=== PATIENT | male | born 1990 | race African-American/Black ===

== ENCOUNTER 2018-03-21 17:07 | Emergency (ER) | payer SELFPAY ==
[2018-03-21] MEDS ORDERED: PROVENTIL INHALER 6.7 G (200 INHALATIONS) INH SCH (18:00)
== END 2018-03-21 18:29 | disposition home or self-care (01) ==
LOC: ERS 17:07
DX: J45.901 Unspecified asthma with (acute) exacerbation (principal); F32.9 Major depressive disorder, single episode, unspecified; Z87.891 Personal history of nicotine dependence; Z79.899 Other long term (current) drug therapy
CPT/HCPCS: 99284

== ENCOUNTER 2018-04-14 16:46 | Emergency (ER) | payer SELFPAY ==
[2018-04-14] MEDS ORDERED: Magnesium Sulfate 2 GM/100 ML BAG ONE (17:12)
[2018-04-14] MEDS ORDERED: Albuterol Sulfate 2.5 mg/0.5 ml Neb ONE ×2 (17:24→17:25)
[2018-04-14] MEDS ORDERED: Albuterol Sulfate 2.5 mg/3 ml Neb ONE (17:34)
--- NOTE | 2018-04-14 18:28 | RAD ---
CHEST TWO VIEWS: 04/14/18 HISTORY: Dyspnea. COMPARISON: 08/02/15. FINDINGS: Normal cardiac silhouette. Lungs and pleural spaces are clear. No pneumothorax or osseous abnormaliti es. IMPRESSION: No acute cardiopulmonary process. POS: [facility]
== END 2018-04-14 19:07 | disposition home or self-care (01) ==
LOC: ERS 16:46
DX: J45.901 Unspecified asthma with (acute) exacerbation (principal); Z71.6 Tobacco abuse counseling; F32.9 Major depressive disorder, single episode, unspecified; Z87.891 Personal history of nicotine dependence; Z79.899 Other long term (current) drug therapy
CPT/HCPCS: 71046; 94644; 96365; 99406; J3475; J7611

== ENCOUNTER 2018-04-29 01:36 | Emergency (ER) | payer SELFPAY ==
[2018-04-29] MEDS ORDERED: Magnesium Sulfate 2 GM/100 ML BAG ONE (01:49)
== END 2018-04-29 03:00 | disposition home or self-care (01) ==
LOC: ERS 01:36
DX: J45.901 Unspecified asthma with (acute) exacerbation (principal); F32.9 Major depressive disorder, single episode, unspecified; Z87.891 Personal history of nicotine dependence; Z79.51 Long term (current) use of inhaled steroids; Z79.899 Other long term (current) drug therapy
CPT/HCPCS: 94760; 96365; J3475

== ENCOUNTER 2018-05-04 06:33 | Emergency (ER) | payer SELFPAY | END 2018-05-04 07:30 | disposition home or self-care (01) | LOC: ERS 06:33 | DX: J45.901 Unspecified asthma with (acute) exacerbation (principal); F32.9 Major depressive disorder, single episode, unspecified; Z87.891 Personal history of nicotine dependence | CPT/HCPCS: 99285 ==

== ENCOUNTER 2018-05-06 11:53 | Emergency (ER) | payer SELFPAY | END 2018-05-06 12:38 | disposition home or self-care (01) | LOC: ERS 11:53 | DX: J45.901 Unspecified asthma with (acute) exacerbation (principal); F32.9 Major depressive disorder, single episode, unspecified; Z87.891 Personal history of nicotine dependence; Z79.899 Other long term (current) drug therapy | CPT/HCPCS: 99285 ==

== ENCOUNTER 2018-05-21 09:03 | Emergency (ER) | payer SELFPAY | END 2018-05-21 10:55 | disposition home or self-care (01) | LOC: ERS 09:03 | DX: J45.901 Unspecified asthma with (acute) exacerbation (principal); F32.9 Major depressive disorder, single episode, unspecified; Z87.891 Personal history of nicotine dependence; Z79.51 Long term (current) use of inhaled steroids | CPT/HCPCS: 99285 ==

== ENCOUNTER 2019-01-27 23:14 | Emergency (ER) | payer SELFPAY | END 2019-01-27 23:44 | disposition home or self-care (01) | LOC: ERS 23:14 | DX: J45.901 Unspecified asthma with (acute) exacerbation (principal); F32.9 Major depressive disorder, single episode, unspecified; Z87.891 Personal history of nicotine dependence; Z79.51 Long term (current) use of inhaled steroids | CPT/HCPCS: 99285 ==

== ENCOUNTER 2019-03-05 02:44 | Inpatient (IN) | payer SELFPAY ==
[2019-03-05] MEDS ORDERED: Albuterol Sulfate 2.5 mg/0.5 ml Neb ONE ×2 (02:49→03:27)
[2019-03-05] MEDS ORDERED: Albuterol Sulfate 2.5 mg/3 ml Neb ONE ×3 (02:49→12:35)
[2019-03-05 03:23] LABS: #Basophils 0.2 thou/uL (0.0-0.2); #Eosinphils 0.5 thou/uL (0.0-0.7); #Lymphocytes 3.6 thou/uL (1.20-3.40); #Monocytes 0.9 thou/uL (0.11-0.59); #Neutrophils 4.2 thou/uL (1.40-6.50); %Basophils 1.8 % (0.0-1.0); %Eosinophils 5.5 % (0.0-10.0); %Lymphocytes 38.3 % (21.0-51.0); %Monocytes 9.2 % (0.0-10.0); %Neutrophils 45.2 % (42.0-75.0); Hemoglobin 14.7 g/dL (14.0-18.0); Mean Corpuscular Volume 96.6 fL (78.0-98.0); Mean Platelet Volume 7.3 fL (7.4-10.4); Platelet Count 202 thou/uL (130-400); RBC Distribution Width 11.5 % (11.5-14.5); Red Blood Cell (RBC) Count 4.75 mill/uL (4.70-6.10); White Blood Cell (WBC) Count 9.3 thou/uL (4.8-10.8)
[2019-03-05 03:39] LABS: Analyzer IN Cardio ER; Base Excess (BEa) -3.4 mEq/L (-2.0 to +3.0); CO2 Tension 46.3 mmHg (35.0-45.0); Calcium, Ionized 1.21 mmol/L (1.12-1.30); Carboxyhemoglobin (COHb) 0.2 gm% (0.0-3.0); Hemoglobin (Hb) 15.5 g/dL (14.0-18.0); O2 Tension (PaO2) 218.4 mmHg (80.0-100.0); Potassium - ABG Lab 3.34 mmol/L (3.70-5.30); pH, Arterial 7.31 (7.35-7.45)
[2019-03-05 03:42] LABS: ALV-art Gradient -62.375 (0-20); Puncture Site LRA
[2019-03-05 04:17] LABS: ALT (SGPT) 18 U/L (8-55); AST (SGOT) 20 U/L (5-34); Albumin 3.7 g/dL (3.5-5.0); Alkaline Phosphatase 56 U/L (40-150); Anion Gap 13 mmol/L (10-20); BUN (Urea Nitrogen) 15 mg/dL (8.9-20.6); Bilirubin, Total 0.5 mg/dL (0.2-1.2); Calc. Creatinine Clearance 0 mL/min (70-130); Carbon Dioxide 23 mmol/L (22-29); Chloride 109 mmol/L (98-107); Estimated GFR-MDRD Greater than 90; Globulin 2.4 g/dL (2.4-3.5); Glucose 135 mg/dL (70-105); Potassium 3.5 mmol/L (3.5-5.1); Protein, Total 6.1 g/dL (6.0-8.3); Sodium 141 mmol/L (136-145)
[2019-03-05] MEDS ORDERED: Albuterol Sulfate 1.25 MG/3 ML NEB NEB PRN (05:15)
[2019-03-05] MEDS ORDERED: Ondansetron PF 4 MG/2 ML Vial IVP PRN (05:17)
[2019-03-05] MEDS ORDERED: Ondansetron ODT 4 MG TAB PO PRN (05:17)
[2019-03-05] MEDS ORDERED: Acetaminophen 325 MG TAB PO PRN (05:17)
[2019-03-05] MEDS ORDERED: methylPREDNISolone Sod Succ 40 MG VIAL ONE ×2 (05:45→12:29)
[2019-03-05] MEDS: methylPREDNISolone Sod Succ 40 MG VIAL IVP SCH ×4 (06:01→23:50)
[2019-03-05] MEDS: Sodium Chloride 0.9% 1,000 ML IV SCH ×3 (06:01→22:18)
[2019-03-05 06:05] VITALS: BMI 17.6
--- NOTE | 2019-03-05 07:34 | HP ---
PRIMARY CARE DOCTOR: Josiah Noriega MD CODE STATUS: Full code. TIME OF EVALUATION: 4 a.m. CHIEF COMPLAINT: Severe shortness of breath. HISTORY OF PRESENT ILLNESS: This is a 28-year-old male patient, known to the hospital due to recurrent severe asthma attacks, recently discharged from our service after intubation in the ICU for the same problem, came to the hospital after having severe sudden onset shortness of breath with no clear triggers. No alleviating factors. The patient received multiple treatment with bronchodilators and steroids. Magnesium has had some improvement, still needing BiPAP. The patient is in respiratory acidosis. This is acute. We will continue BiPAP. He is improving. Monitor closely in IMCU. REVIEW OF SYSTEMS: CONSTITUTIONAL: No fever, chills, or generalized weakness. RESPIRATORY: The patient has cough with scant sputum production and shortness of breath. CARDIOVASCULAR: No chest pain or palpitation. GASTROINTESTINAL: No nausea. No vomiting, diarrhea, or abdominal pain. IMPORT/EXPORT CLERK: No dizziness, headache, or feeling lightheaded. GENITOURINARY: No burning on urination. EXTREMITIES: No leg swelling. All other systems were reviewed and negative except for the findings mentioned above. PAST MEDICAL HISTORY: Positive for asthma. PAST SURGICAL HISTORY: No surgical history. PSYCHIATRIC HISTORY: Depression and history of suicidal ideation. SOCIAL HISTORY: No alcohol. Former drug user. Abuse methamphetamines. Quit smoking in past year. FAMILY HISTORY: Noncontributory to this case. KNOWN ALLERGIES: No known drug allergies. REPORTED MEDICATIONS: Albuterol. PHYSICAL EXAMINATION: VITAL SIGNS: On presentation; blood pressure 136/81, heart rate 122, respiratory rate was 16, temperature 97.6, pain was 2, oxygen saturation was 100 on BiPAP. GENERAL APPEARANCE: The patient is alert, oriented, not in acute distress. HEENT: Eyes, normal conjunctivae. Moist oral mucosa. Anicteric. No JVD. RESPIRATORY: Bilateral air entry is decreased with decreased air movement. No rales. Bilateral wheezing, symmetric expansion. CARDIOVASCULAR: The patient is tachycardic. Regular rhythm. No murmurs. No gallops. No edema. ABDOMEN: Soft. Normal bowel sounds. MUSCULOSKELETAL: Baseline range of motion and strength. No tenderness. SKIN: Warm and intact. No pallor. No rash. No redness. Peripheral pulses are present. Capillary refill seems to be intact. NEUROLOGIC: No evidence of any new focal weakness. Baseline speech. Cranial nerves seems to be intact. PSYCH: The patient is in good mood. No anxiety. Optimal judgment. DIAGNOSTIC STUDIES: EKG was reviewed, the patient has sinus tachycardia, heart rate 119, CA 114, QRS 80, QT corrected 175. Chest x-ray showed air trapping pattern with cardiac silhouette horizontal ribs. No evidence of any pneumonia. LABORATORY DATA: Labs are reviewed. The patient has white count 9.3, hemoglobin 14.7, MCV 96.6, platelet count 202. Blood gas, pH 7.31 with pCO2 of 46.3, pO2 218. Chemistry; sodium 141, potassium 3.5, chloride 109, carbon dioxide 23, anion gap 13, BUN 15, creatinine 1.04, GFR greater than 90, glucose 135, calcium 9, total bilirubin 0.5. LFTs were negative. ASSESSMENT AND PLAN: The patient will be placed in the hospital with following medical problems: 1. Acute severe status asthmaticus, not resolving with initial treatment. The patient presented with acute hypoxic respiratory failure, hypercarbic respiratory failure with respiratory acidosis, improved on BiPAP. We will monitor closely in IMCU. The patient may need intubation if continue to deteriorate. Continue nebs and steroids. Consult Pulmonary. We will follow recommendations. 2. Deep venous thrombosis prophylaxis. 3. Hyperglycemia. Glucose 135, this is likely due to acute distress. No history of diabetes. No need for any acute intervention at this point, this is mild, we will monitor. We will treat accordingly. Job ID: [id number]
--- NOTE | 2019-03-05 08:29 | RAD ---
CHEST 1 VIEW: INDICATION: Asthma exacerbation. COMPARISON: Prior study dated 02/22/2019. FINDINGS: Lungs are hyperinflated but clear. No definite pneumothorax is evident. No acute osseous abnormalit y is noted. IMPRESSION: No acute cardiopulmonary abnormality. POS: [facility]
[2019-03-05] MEDS ORDERED: Enoxaparin Sodium 40 MG/0.4 ML SYRINGE ONE (09:09)
[2019-03-05] MEDS: Enoxaparin Sodium 40 MG/0.4 ML SYRINGE SC SCH (09:14)
[2019-03-05] MEDS: Albuterol Sulfate 1.25 MG/3 ML NEB NEB SCH ×4 (09:42→22:11)
[2019-03-06] MEDS: Albuterol Sulfate 1.25 MG/3 ML NEB NEB SCH ×7 (02:30→22:12)
[2019-03-06 05:45] LABS: #Lymphocytes 0.9 thou/uL (1.20-3.40); #Monocytes 0.7 thou/uL (0.11-0.59); #Neutrophils 16.7 thou/uL (1.40-6.50); %Basophils 0.1 % (0.0-1.0); %Eosinophils 0.1 % (0.0-10.0); %Monocytes 3.7 % (0.0-10.0); %Neutrophils 91.1 % (42.0-75.0); Hemoglobin 14.3 g/dL (14.0-18.0); Mean Corpuscular HGB CONC 32.7 g/dL (32.0-36.0); Mean Corpuscular Hemoglobin 31.6 pg (27.0-31.0); Mean Corpuscular Volume 96.4 fL (78.0-98.0); Mean Platelet Volume 7.4 fL (7.4-10.4); Platelet Count 201 thou/uL (130-400); RBC Distribution Width 11.6 % (11.5-14.5); Red Blood Cell (RBC) Count 4.53 mill/uL (4.70-6.10); White Blood Cell (WBC) Count 18.3 thou/uL (4.8-10.8)
[2019-03-06 06:08] LABS: Anion Gap 9 mmol/L (10-20); BUN (Urea Nitrogen) 7 mg/dL (8.9-20.6); Calc. Creatinine Clearance 98 mL/min (70-130); Calcium 9.2 mg/dL (7.8-10.44); Carbon Dioxide 25 mmol/L (22-29); Chloride 108 mmol/L (98-107); Estimated GFR-MDRD Greater than 90; Glucose 127 mg/dL (70-105); Potassium 4.1 mmol/L (3.5-5.1); Sodium 138 mmol/L (136-145)
[2019-03-06] MEDS: methylPREDNISolone Sod Succ 40 MG VIAL IVP SCH ×2 (06:23→12:32)
[2019-03-06] MEDS: Sodium Chloride 0.9% 1,000 ML IV SCH (06:23)
[2019-03-06] MEDS: Enoxaparin Sodium 40 MG/0.4 ML SYRINGE SC SCH (09:52)
[2019-03-06] MEDS ORDERED: predniSONE 20 MG TAB PO SCH (13:00)
--- NOTE | 2019-03-06 18:15 | PDOC.PN ---
- Subjective Encounter Start Date: 03/06/19 Encounter Start Time: 10:20 Pt seen for followup re: asthma exacerbation. Says he feels better. - Objective Resuscitation Status - Order Detail: 03/05/19 05:17 Resuscitation Status Routine Resuscitation Status: FULL: Full Resuscitation Resuscitation Status Routine Resuscitation Status: FULL: Full Resuscitation Additional comments: CALLED DR. GERMAN OFFICE @ [id number] [facility] Reviewed: Yes Vital Signs & Weight: Vital Signs (12 hours) Temp Pulse Resp BP Pulse Ox 03/06/19 17:42 99 03/06/19 17:41 98.3 F 86 18 110/70 99 03/06/19 15:17 106 H 12 95 03/06/19 14:45 99.6 F 03/06/19 10:48 109 H 15 96 03/06/19 10:33 99.3 F 03/06/19 08:00 100 03/06/19 07:13 82 19 97 03/06/19 07:11 98.4 F Weight Admit Weight 109 lb 9.116 oz Weight 109 lb 9.116 oz Most Recent Monitor Data Heart Rate from ECG 91 NIBP 123/57 NIBP BP-Mean 79 Respiration from ECG 16 SpO2 98 I&O: 03/05/19 03/06/19 03/07/19 06:59 06:59 06:59 Intake Total 2115 900 Output Total 1800 1850 Balance 315 -950 Result Diagrams: 03/06/19 05:25 03/06/19 05:25 Additional Labs: Tele: sinus tachycardia Phys Exam - Physical Examination Constitutional: NAD HEENT: moist MMs Neck: supple Diminished air entry maikel bases S1, S2, tachy, reg Gastrointestinal: positive bowel sounds Neurological: moves all 4 limbs Psychiatric: normal affect Dx/Plan (1) Asthma exacerbation Code(s): J45.901 - UNSPECIFIED ASTHMA WITH (ACUTE) EXACERBATION Status: Acute Comment: Improving, continue oxygen, steroids, bronchodilators (2) Leucocytosis Code(s): D72.829 - ELEVATED WHITE BLOOD CELL COUNT, UNSPECIFIED Status: Acute Comment: secondary to steroids - Plan respiratory therapy, out of bed/ambulate * . Consult case management for medication assistance Review of Systems - Review of Systems Respiratory: Cough, Dry, SOB with Excertion. negative: Shortness of Breath, Hemoptysis, Pleuritic Pain, Sputum, Wheezing Cardiovascular: negative: chest pain, palpitations, orthopnea, paroxysmal nocturnal dyspnea, edema, light headedness - Medications/Allergies Allergies/Adverse Reactions: Allergies Allergy/AdvReac Type Severity Reaction Status Date / Time No Known Allergies Allergy Verified 03/05/19 16:27 Medications: Current Medications Acetaminophen (Tylenol) 650 mg PO Q4H PRN PRN Reason: Headache/Fever/Mild Pain (1-3) Albuterol Sulfate (Albuterol Sulfate) 2.5 mg NEB Q2H PRN PRN Reason: Wheezing Albuterol Sulfate (Albuterol Sulfate) 2.5 mg NEB [id number] [facility] Enoxaparin Sodium (Lovenox) 40 mg SC 0900 [facility] Last Admin: 03/06/19 09:52 Dose: 40 mg Montelukast Sodium (Singulair) 10 mg PO QPM [facility] Ondansetron HCl (Zofran Odt) 4 mg PO Q6H PRN PRN Reason: Nausea/Vomiting Ondansetron HCl (Zofran) 4 mg IVP Q6H PRN PRN Reason: Nausea/Vomiting Prednisone (Prednisone) 40 mg PO QAM-[facility] Stop: 03/19/19 08:01
--- NOTE | 2019-03-06 20:36 | CON ---
DATE OF CONSULTATION: 03/06/2019 SERVICE: Pulmonary Medicine. REASON FOR CONSULT: Status asthmaticus. HISTORY OF PRESENT ILLNESS: The patient is a 28-year-old male with past medical history significant for asthma. He was in his usual state of health when he woke up at 2 o'clock in the morning abruptly short of breath. He could not catch his air and presented to the emergency department where he was discovered to be suffering from a severe asthma attack. He denies any current fevers, chills, nausea, vomiting, or diarrhea. He did not have any cough or sputum production. He is not having any diarrhea. Otherwise, he went to bed in his usual state of health. PAST MEDICAL HISTORY: 1. Asthma. 2. Acid reflux disease. PAST SURGICAL HISTORY: None. SOCIAL HISTORY: He is a former abuser of methamphetamine. He quit smoking within the last year. He denies any alcohol or current street drugs. He has no exposure to chemicals, dust, asbestos, or tuberculosis. FAMILY HISTORY: Noncontributory. ALLERGIES: NO KNOWN DRUG ALLERGIES. MEDICATIONS: List of his inpatient medications was reviewed. Multiple updates were made at this time. REVIEW OF SYSTEMS: General, head, ears, eyes, nose, throat, cardiovascular, respiratory, GI, , musculoskeletal, neurologic, and skin is negative except as mentioned in the HPI. PHYSICAL EXAMINATION: VITAL SIGNS: Afebrile, pulse 82, blood pressure 97/48, respirations 19, saturation 97% on room air. GENERAL: The patient is awake and alert, in no apparent distress. LUNGS: Very reduced air entry. There is a prolonged expiratory phase with minimal wheezing present. He is really not moving enough air to appreciate clear adventitious sounds. No crackles or rhonchi appreciated. HEART: Normal rate and regular. ABDOMEN: Soft, nontender, and nondistended. Bowel sounds are positive. MUSCULOSKELETAL: No cyanosis or clubbing. No pitting in the bilateral lower extremities. NEUROLOGIC: Grossly nonfocal. LABORATORY DATA: Eosinophil count is 5.5%, corresponding to 500. CBC is otherwise unremarkable on presentation. The white blood cell count went up, likely owing to steroids. PH 7.31, pCO2 of 46, PO2 of 218. Basic metabolic profile and liver function studies are otherwise unremarkable. Blood cultures x2 are negative. IMAGING DATA: Chest x-ray demonstrates no acute cardiopulmonary abnormality. Hyperexpanded lung morales are identified. ASSESSMENT: 1. Status asthmaticus, improving. 2. Acute hypoxic and hypercapnic respiratory failure, improving. 3. Acid reflux disease. DISCUSSION AND PLAN: With the patient's descriptions of nocturnal symptoms 3 or 4 times a week and severe reflux changes, my suspicion is that he is having true asthma attacks, but they may be related to extrinsic disease. Additionally, he needs to be on controlling asthma medications in the outpatient setting. He identifies cost as an issue there. That being said, he admits that he has never done the legwork to see whether or not he would qualify for free drug through one of the drug companies. He will need to touch base with his primary care physician to facilitate this in the outpatient setting if possible. We will deescalate his steroids over to p.o., I will interrupt his IV fluids. We can transition him upstairs. I have cautioned him to avoid p.o. within 2 hours of being supine and to keep his head of bed elevated while sleeping in order to prevent reflux related asthma attacks. I will continue to follow while he remains in-house, but from my perspective, if he continues to improve, he will be stable for transition out of the hospital on a 14-day course of steroids. Once again, on discharge, the patient would benefit from long-acting therapy like Dulera or Symbicort or Breo or nebulized budesonide in the outpatient setting. 70 minutes have been devoted to this patient in various activities. I personally reviewed all imaging studies and laboratory data noted within this document. For fifty percent of this time, I was interacting with the patient at the bedside or coordinating care with the care team. For the remainder of the time I was immediately available to the patient in the hospital unit. Job ID: [id number] MTDD
[2019-03-06] MEDS ORDERED: Montelukast Sodium 10 mg Tablet PO SCH (21:00)
[2019-03-07] MEDS: Albuterol Sulfate 1.25 MG/3 ML NEB NEB SCH ×4 (02:42→14:05)
[2019-03-07 06:26] LABS: #Lymphocytes 3.9 thou/uL (1.20-3.40); #Neutrophils 11.2 thou/uL (1.40-6.50); %Basophils 0.3 % (0.0-1.0); %Eosinophils 0.1 % (0.0-10.0); %Monocytes 6.2 % (0.0-10.0); %Neutrophils 69.5 % (42.0-75.0); Mean Corpuscular HGB CONC 31.5 g/dL (32.0-36.0); Mean Corpuscular Hemoglobin 30.5 pg (27.0-31.0); Mean Platelet Volume 7.8 fL (7.4-10.4); Platelet Count 211 thou/uL (130-400); RBC Distribution Width 11.7 % (11.5-14.5); White Blood Cell (WBC) Count 16.1 thou/uL (4.8-10.8)
[2019-03-07 06:55] LABS: Anion Gap 12 mmol/L (10-20); BUN (Urea Nitrogen) 9 mg/dL (8.9-20.6); Calc. Creatinine Clearance 99 mL/min (70-130); Calcium 9.1 mg/dL (7.8-10.44); Carbon Dioxide 25 mmol/L (22-29); Chloride 105 mmol/L (98-107); Estimated GFR-MDRD Greater than 90; Glucose 81 mg/dL (70-105); Potassium 3.5 mmol/L (3.5-5.1); Sodium 138 mmol/L (136-145)
[2019-03-07] MEDS: Enoxaparin Sodium 40 MG/0.4 ML SYRINGE SC SCH (07:55)
[2019-03-07] MEDS ORDERED: predniSONE 20 MG TAB PO SCH (08:00)
--- NOTE | 2019-03-07 14:06 | PDOC.PN ---
- Subjective Encounter Start Date: 03/07/19 Encounter Start Time: 08:40 Pt seen for followup re: asthma exacerbation. Denies fevers or chills. Feels better. - Objective Resuscitation Status - Order Detail: 03/05/19 05:17 Resuscitation Status Routine Resuscitation Status: FULL: Full Resuscitation Resuscitation Status Routine Resuscitation Status: FULL: Full Resuscitation Additional comments: CALLED DR. GERMAN OFFICE @ [id number] Vital Signs & Weight: Vital Signs (12 hours) Temp Pulse Resp BP BP Pulse Ox 03/07/19 11:20 98.5 F 88 18 106/68 98 03/07/19 10:32 102 H 19 03/07/19 08:00 97 03/07/19 07:44 97.8 F 100 20 94/54 L 97 03/07/19 06:52 82 16 03/07/19 05:10 98.6 F 82 16 106/63 96 03/07/19 02:42 91 14 97 Weight Admit Weight 109 lb 9.116 oz Weight 109 lb 9.116 oz Most Recent Monitor Data Heart Rate from ECG 91 NIBP 123/57 NIBP BP-Mean 79 Respiration from ECG 16 SpO2 98 I&O: 03/06/19 03/07/19 03/08/19 06:59 06:59 06:59 Intake Total 2115 1877 Output Total 1800 1850 Balance 315 27 Result Diagrams: 03/07/19 05:40 03/07/19 05:40 Phys Exam - Physical Examination Constitutional: NAD HEENT: moist MMs Neck: supple Respiratory: clear to auscultation bilateral Cardiovascular: RRR Gastrointestinal: soft Neurological: moves all 4 limbs Psychiatric: normal affect Dx/Plan (1) Asthma exacerbation Code(s): J45.901 - UNSPECIFIED ASTHMA WITH (ACUTE) EXACERBATION Status: Acute Comment: significantly improved. Continue steroids and bronchodilators. (2) Leucocytosis Code(s): D72.829 - ELEVATED WHITE BLOOD CELL COUNT, UNSPECIFIED Status: Acute Comment: secondary to steroid use - Plan * . Review of Systems - Review of Systems Respiratory: SOB with Excertion. negative: Cough, Dry, Shortness of Breath, Hemoptysis, Pleuritic Pain, Sputum, Wheezing Cardiovascular: negative: chest pain, palpitations, orthopnea, paroxysmal nocturnal dyspnea, edema, light headedness - Medications/Allergies Allergies/Adverse Reactions: Allergies Allergy/AdvReac Type Severity Reaction Status Date / Time No Known Allergies Allergy Verified 03/05/19 16:27 Medications: Current Medications Acetaminophen (Tylenol) 650 mg PO Q4H PRN PRN Reason: Headache/Fever/Mild Pain (1-3) Albuterol Sulfate (Albuterol Sulfate) 2.5 mg NEB Q2H PRN PRN Reason: Wheezing Albuterol Sulfate (Albuterol Sulfate) 2.5 mg NEB [id number] [facility] Last Admin: 03/07/19 10:32 Dose: 2.5 mg Enoxaparin Sodium (Lovenox) 40 mg SC 0900 [facility] Last Admin: 03/07/19 07:55 Dose: 40 mg Montelukast Sodium (Singulair) 10 mg PO QPM [facility] Last Admin: 03/06/19 20:06 Dose: 10 mg Ondansetron HCl (Zofran Odt) 4 mg PO Q6H PRN PRN Reason: Nausea/Vomiting Ondansetron HCl (Zofran) 4 mg IVP Q6H PRN PRN Reason: Nausea/Vomiting Prednisone (Prednisone) 40 mg PO QA-[facility] Stop: 03/19/19 08:01 Last Admin: 03/07/19 07:55 Dose: 40 mg
--- NOTE | 2019-03-07 14:40 | PRG ---
DATE OF SERVICE: 03/07/2019 SERVICE: Pulmonary Medicine. INTERVAL HISTORY: The patient is doing outstanding from respiratory standpoint. He indicates his breathing is basically back to baseline. He denies any current chest pain, fevers, chills, nausea, vomiting, or shortness of breath. Otherwise, he has no specific complaints. PHYSICAL EXAMINATION: VITAL SIGNS: Afebrile, pulse 88, blood pressure 106/68, respirations 18, and saturation 98% on room air. GENERAL: The patient is awake and alert, in no apparent distress. LUNGS: Much improved air entry. There is a prolonged expiratory phase. I do not hear any polyphonic wheezing, crackles, or rhonchi. HEART: Normal rate and regular. ABDOMEN: Soft, nontender, and nondistended. Bowel sounds are positive. MUSCULOSKELETAL: No cyanosis or clubbing. No pitting in the bilateral lower extremities. NEUROLOGIC: Grossly nonfocal. LABORATORY DATA: WBC 16.1 and downtrending, hemoglobin 14, platelets 211,000. Basic metabolic profile is essentially unremarkable. Blood cultures x2 are unremarkable. ASSESSMENT: 1. Status asthmaticus, resolved. 2. Acute hypoxic and hypercapnic respiratory failure, resolved. 3. Acid reflux disease. DISCUSSION AND PLAN: The patient is stable for transition out of the hospital. He will need 14 days of steroids. The white blood cell count is likely a steroid effect. The differential has returned to the normal limits, and lymphocyte count has rebounded. He will need to initiate a long-acting inhaled corticosteroid in the outpatient setting. This can come in the form of budesonide, Symbicort, Breo, or Dulera. We can continue Singulair in the outpatient setting as well. In addition to this, he will need to continue short-acting beta agonist if needed. If he remains in-house, I will continue to follow but from my perspective, he is stable for discharge home with his prednisone taper. Job ID: [id number]
[2019-03-07 16:18] VITALS: BP 126/76; TEMP 98.2
--- NOTE | 2019-03-07 20:44 | DIS ---
DATE OF ADMISSION: 03/05/2019 DATE OF DISCHARGE: 03/07/2019 PRIMARY CARE PROVIDER: Dr. Josiah Noriega. DISCHARGE DIAGNOSES: 1. Status asthmaticus. 2. Acute hypoxic and hypercapnic respiratory failure. CONDITION OF PATIENT ON THE DAY OF DISCHARGE: Stable. I assessed Mr. Bermeo on the day of discharge. Please refer to my daily progress note for further details regarding this [id number] encounter. DISCHARGE MEDICATIONS: 1. ProAir HFA 2 puffs every 6 hours as needed. 2. Dulera 100/5 mcg inhaler 2 puffs two times a day. 3. Singulair 10 mg daily. 4. Prednisone 40 mg daily for 13 more days. CONSULTATIONS DURING THIS HOSPITALIZATION: Pulmonary and Critical Care Medicine, Dr. Castro. HOSPITAL COURSE: Mr. Bermeo is a pleasant 28-year-old gentleman who was admitted to [facility] on 03/05/2019, for status asthmaticus. He improved with oxygen, steroids, and bronchodilators. He was also briefly treated with BiPAP. He was initially treated in IMCU and subsequently transferred to the medical floor. He continued to improve and is being discharged home in a stable condition. On the day of discharge, he has white count 16,100, hemoglobin 14, platelet count 211,000, normal electrolytes and normal creatinine. Many thanks for allowing me to participate in your patient's care. Please feel free to contact me with any questions or concerns. DISCHARGE DESTINATION: Home. TOTAL AMOUNT OF TIME SPENT COORDINATING THIS DISCHARGE: 31 minutes. Job ID: [id number]
== END 2019-03-07 16:54 | disposition home or self-care (01) | DRG 189 ==
LOC: ERS 02:44 → ERHOLD 03:30 → IMCU/EMU 16:08 → T4-B 03-06 17:27
PROVIDERS: ADMIT Hospitalist; ATTEND Hospitalist
PROC: 5A09457 Assistance with Respiratory Ventilation, 24-96 Consecutive Hours, Continuous Positive Airway Pressure (ICD-10-PCS; principal; 2019-03-05)
DX: J96.01 Acute respiratory failure with hypoxia (principal); J45.902 Unspecified asthma with status asthmaticus; J96.02 Acute respiratory failure with hypercapnia; F32.9 Major depressive disorder, single episode, unspecified; F15.11 Other stimulant abuse, in remission; K21.9 Gastro-esophageal reflux disease without esophagitis; D72.829 Elevated white blood cell count, unspecified; R73.9 Hyperglycemia, unspecified; Z79.51 Long term (current) use of inhaled steroids; Z87.891 Personal history of nicotine dependence
CPT/HCPCS: 36415; 71045; 80048; 80053; 82805; 85025; 87040; 93005; 94640; 94644; 94660; J1650; J2920; J7512; J7611; J7620

== ENCOUNTER 2019-03-22 12:49 | Emergency (ER) | payer SELFPAY ==
[2019-03-22] MEDS ORDERED: Albuterol Sulfate 2.5 mg/0.5 ml Neb ONE ×2 (13:16)
--- NOTE | 2019-03-22 13:35 | RAD ---
XR Chest 1 View Portable History: [Dyspnea] Comparison: Radiograph February 27 6018 Findings: Lungs are clear. No pneumothorax or effusion. Cardiac silhouette and mediastinal contours a re within normal limits. Impression: No acute intrathoracic abnormality.
== END 2019-03-22 15:10 | disposition home or self-care (01) ==
LOC: ERS 12:49
DX: J45.901 Unspecified asthma with (acute) exacerbation (principal); F32.9 Major depressive disorder, single episode, unspecified; Z87.891 Personal history of nicotine dependence; Z79.51 Long term (current) use of inhaled steroids
CPT/HCPCS: 71045; 94640; 96360; 96361; J7611; J7620

== ENCOUNTER 2019-04-05 22:59 | Emergency (ER) | payer OTHER, SELFPAY ==
--- NOTE | 2019-04-05 23:46 | RAD ---
AP view chest. HISTORY: Asthma. AP view chest obtained. The lungs are well aerated. No evidence of active intrathoracic disease seen. No evidence of effusions, pneumonia or pneumothorax seen. IMPRESSION: Unremarkable AP view chest.
[2019-04-06] MEDS ORDERED: Dexamethasone 10 MG/ML VIAL ONE (00:09)
[2019-04-06] MEDS ORDERED: PROVENTIL INHALER 6.7 G (200 INHALATIONS) INH SCH (00:15)
== END 2019-04-06 00:30 ==
LOC: ERS 22:59 → EEVIPCON 22:59 → ERS 04-06 00:30
DX: J45.901 Unspecified asthma with (acute) exacerbation (principal); Z87.891 Personal history of nicotine dependence
CPT/HCPCS: 71045; 87804; 94640; 96360; 96361; J1100; J7620

== ENCOUNTER 2020-08-23 11:33 | Emergency (ER) | payer OTHER, SELFPAY ==
[2020-08-23] MEDS ORDERED: Albuterol Sulfate 2.5 mg/3 ml Neb ONE (11:55)
[2020-08-23] MEDS ORDERED: Ipratropium Bromide 2.5 ml Neb ONE (11:55)
== END 2020-08-23 12:51 | disposition home or self-care (01) ==
LOC: ERS 11:33
DX: J45.901 Unspecified asthma with (acute) exacerbation (principal); F32.9 Major depressive disorder, single episode, unspecified; Z87.891 Personal history of nicotine dependence; Z79.51 Long term (current) use of inhaled steroids
CPT/HCPCS: 94644; J7611